=== PATIENT | female | born 1970 | race Caucasian/White ===

== ENCOUNTER 2024-02-08 10:22 | Inpatient (IN) | payer OTHER ==
[2024-02-08 10:55] VITALS: BMI 29.0
[2024-02-08] MEDS ORDERED: IBUPROFEN 400 MG TABLET (FP) PO PRN (11:19)
[2024-02-08] MEDS ORDERED: guaiFENesin 600 MG TABLET.ER (FP) PO PRN (11:19)
[2024-02-08] MEDS ORDERED: MAG HYDROX/AL HYDROX/SIMETH 30 ML UNIT-DOSE CUP PO PRN (11:19)
[2024-02-08] MEDS ORDERED: BENZONATATE 200 MG CAPSULE PO PRN (11:19)
[2024-02-08] MEDS ORDERED: MAGNESIUM HYDROX 2400MG/30ML ORAL SUSPENSION 30 ML CUP PO PRN (11:19)
[2024-02-08] MEDS ORDERED: P-EPHED 60MG/TRIPROLIDI 2.5MG TABLET PO PRN (11:19)
[2024-02-08] MEDS ORDERED: ONDANSETRON *ODT* 4 MG TABLET SL PRN (11:19)
[2024-02-08] MEDS ORDERED: NALOXONE (NARCAN) HCL 4 MG/0.1 ML SPRAY NS PRN (11:19)
[2024-02-08] MEDS ORDERED: DICYCLOMINE HCL 10 MG CAPSULE PO PRN (11:19)
[2024-02-08] MEDS ORDERED: BENZOCAINE/MENTHOL (CHLORASEPTIC ) LOZENGE MM PRN (11:19)
[2024-02-08] MEDS ORDERED: ACETAMINOPHEN 325 MG TABLET (FP) PO PRN (11:19)
[2024-02-08] MEDS ORDERED: NALOXONE (NYS OPIOID OVERDOSE PROGRAM) 4 MG/0.1 ML SPRAY NS PRN (11:19)
[2024-02-08] MEDS ORDERED: POLYETHYLENE GLYCOL (HEALTHYLAX) 3350 17 GM PACKET PO PRN (11:19)
[2024-02-08] MEDS ORDERED: chlordiazePOXIDE HCL 25 MG CAPSULE ONE (11:55)
[2024-02-08] MEDS: chlordiazePOXIDE HCL 25 MG CAPSULE PO SCH (11:57)
[2024-02-08] MEDS ORDERED: INSULIN (NOVOLOG) ASPART 100 UNITS/ML 10ML VIAL ONE ×2 (12:10→22:21)
[2024-02-08] MEDS: INSULIN ASPART SLIDING SCALE (NOVOLOG) 1 VIAL SQ SCH (12:12)
[2024-02-08] MEDS ORDERED: methaDONE HCL 40 MG DISPERSABLE TABLET PO SCH (13:45)
[2024-02-08] MEDS: IBUPROFEN 600 MG TABLET (FP) PO PRN (17:09)
[2024-02-08] MEDS ORDERED: MELATONIN 5 MG TABLETS PO SCH (22:00)
[2024-02-08] MEDS: SUVOREXANT 10 MG TABLET PO PRN (22:16)
[2024-02-08] MEDS: METHOCARBAMOL 500 MG TABLET PO PRN (22:16)
[2024-02-08] MEDS: THIAMINE 100 MG TABLET PO SCH (22:16)
[2024-02-08] MEDS: SILVER SULFADIAZINE 1% TOP CREAM 50 GM JAR TP SCH (22:17)
[2024-02-09] MEDS: PRENATAL VITAMINS W/ FOLIC ACID TABLET (FP) PO SCH (10:10)
[2024-02-09 13:26] LABS: HEMATOCRIT 35.8 % (32.4-45.2); MCH 31.1 pg (25.7-33.7); MCHC 33.5 g/dl (32.0-36.0); MEAN CELL VOLUME 92.9 fl (80-96); PLATELET COUNT 140 10^3/uL (134-434); RBC 3.85 M/mm3 (3.60-5.2); RDW 14.1 % (11.6-15.6); WHITE BLOOD COUNT 6.2 K/mm3 (4.0-10.0)
[2024-02-09 13:41] LABS: POTASSIUM 4.3 mmol/L (3.5-5.1)
[2024-02-09 13:51] LABS: ALBUMIN 3.1 g/dl (3.4-5.0); BLOOD UREA NITROGEN 14.7 mg/dL (7-18)
[2024-02-09 13:54] LABS: CREATININE 0.7 mg/dL (0.55-1.3)
[2024-02-09 13:55] LABS: CALCIUM 9.1 mg/dL (8.5-10.1)
[2024-02-09 13:56] LABS: BILIRUBIN,TOTAL 0.3 mg/dL (0.2-1); TOT PROT 5.8 g/dl (6.4-8.2)
[2024-02-09] MEDS ORDERED: INSULIN (NOVOLOG) ASPART 100 UNITS/ML 10ML VIAL ONE ×2 (17:08→22:53)
[2024-02-09] MEDS: chlordiazePOXIDE HCL 25 MG CAPSULE PO PRN (19:52)
[2024-02-09] MEDS: LOPERAMIDE HCL 2 MG CAPSULE PO PRN (19:52)
[2024-02-10] MEDS: chlordiazePOXIDE HCL 25 MG CAPSULE PO SCH (05:45)
[2024-02-10] MEDS ORDERED: INSULIN ASPART SLIDING SCALE (NOVOLOG) 1 VIAL SQ SCH (14:33)
[2024-02-10] MEDS ORDERED: INSULIN (NOVOLOG) ASPART 100 UNITS/ML 10ML VIAL ONE (16:58)
[2024-02-10] MEDS: INSULIN ASPART SLIDING SCALE (NOVOLOG) 1 VIAL SQ SCH (18:11)
[2024-02-10] MEDS: INSULIN (LEVEMIR) 100 UNITS/ML UNITS SQ SCH (22:19)
[2024-02-11] MEDS ORDERED: chlordiazePOXIDE HCL 10 MG CAPSULE PO PRN
[2024-02-11] MEDS: chlordiazePOXIDE HCL 10 MG CAPSULE PO SCH (05:45)
[2024-02-11] MEDS: EMPAGLIFLOZIN (JARDIANCE) 25 MG TABLET PO SCH (06:58)
[2024-02-11] MEDS: SULFAMETHOXAZOLE/TRIMETHOPRIM 800MG/160MG D.S. TABLET PO SCH (10:42)
[2024-02-11] MEDS: LIDOCAINE 4% PATCH TP SCH (15:10)
[2024-02-11] MEDS ORDERED: INSULIN (NOVOLOG) ASPART 100 UNITS/ML 10ML VIAL ONE ×3 (16:28→23:05)
[2024-02-11] MEDS: LIDOCAINE PATCH REMOVAL MC SCH (22:25)
[2024-02-11] MEDS: BISMUTH SUBSALICYLATE 262 MG/15 ML BTL PO PRN (22:27)
[2024-02-12] MEDS: chlordiazePOXIDE HCL 10 MG CAPSULE PO SCH (05:55)
[2024-02-12] MEDS ORDERED: INSULIN (NOVOLOG) ASPART 100 UNITS/ML 10ML VIAL ONE ×3 (10:51→22:16)
[2024-02-13] MEDS: chlordiazePOXIDE HCL 10 MG CAPSULE PO ONE (05:56)
[2024-02-13 06:32] VITALS: PULSE 90
[2024-02-13 09:20] VITALS: BP 139/81; RESP 18; TEMP 98
[2024-02-13] MEDS ORDERED: INSULIN (NOVOLOG) ASPART 100 UNITS/ML 10ML VIAL ONE (11:22)
== END 2024-02-13 13:20 | disposition other institution (70) | DRG 773 ==
LOC: YASAS 10:22 → Y6N 12:06
PROVIDERS: ADMIT Allergy & Immunology; ATTEND Surgery
PROC: HZ2ZZZZ Detoxification Services for Substance Abuse Treatment (ICD-10-PCS; principal; 2024-02-08)
DX: F10.230 Alcohol dependence with withdrawal, uncomplicated (principal); F11.20 Opioid dependence, uncomplicated; F14.20 Cocaine dependence, uncomplicated; F31.9 Bipolar disorder, unspecified; F25.9 Schizoaffective disorder, unspecified; F19.282 Other psychoactive substance dependence with psychoactive substance-induced sleep disorder; F19.280 Other psychoactive substance dependence with psychoactive substance-induced anxiety disorder; F43.10 Post-traumatic stress disorder, unspecified; I25.2 Old myocardial infarction; E11.9 Type 2 diabetes mellitus without complications; Z79.4 Long term (current) use of insulin; Z86.19 Personal history of other infectious and parasitic diseases; Z99.89 Dependence on other enabling machines and devices
CPT/HCPCS: 0241U-QW; 36415; 71045-TC-FY; 80053; 80305; 80307; 81025; 82962; 83036; 85027; 86593; 86780; 87811; 93005; 93010

== ENCOUNTER 2024-02-13 13:41 | Inpatient (IN) | payer OTHER ==
[~2024-02-13 13:41] MED LIST: BENZONATATE 200 MG CAPSULE PO PRN; IBUPROFEN 400 MG TABLET (FP) PO PRN; LOPERAMIDE HCL 2 MG CAPSULE PO PRN; MAG HYDROX/AL HYDROX/SIMETH 30 ML UNIT-DOSE CUP PO PRN; MAGNESIUM HYDROX 2400MG/30ML ORAL SUSPENSION 30 ML CUP PO PRN; NALOXONE (NARCAN) HCL 4 MG/0.1 ML SPRAY NS PRN; NICOTINE POLACRILEX 2 MG GUM BUC PRN; NICOTINE POLACRILEX 2 MG LOZENGE BC PRN; POLYETHYLENE GLYCOL (HEALTHYLAX) 3350 17 GM PACKET PO PRN; guaiFENesin 600 MG TABLET.ER (FP) PO PRN
[2024-02-13] MEDS ORDERED: INSULIN ASPART SLIDING SCALE (NOVOLOG) 1 VIAL SQ SCH (16:30)
[2024-02-13] MEDS: THIAMINE 100 MG TABLET PO SCH (21:47)
[2024-02-13] MEDS: INSULIN (LEVEMIR) 100 UNITS/ML UNITS SQ SCH (21:47)
[2024-02-13] MEDS: MELATONIN 5 MG TABLETS PO SCH (21:47)
[2024-02-13] MEDS: SULFAMETHOXAZOLE/TRIMETHOPRIM 800MG/160MG D.S. TABLET PO SCH (21:47)
[2024-02-13] MEDS: hydrOXYzine PAMOATE 25 MG CAPSULE (FP) PO PRN (21:49)
[2024-02-13] MEDS: SILVER SULFADIAZINE 1% TOP CREAM 50 GM JAR TP SCH (22:56)
[2024-02-14] MEDS ORDERED: INSULIN (NOVOLOG) ASPART 100 UNITS/ML 10ML VIAL ONE (06:13)
[2024-02-14] MEDS: methaDONE HCL 40 MG DISPERSABLE TABLET PO SCH (07:04)
[2024-02-14] MEDS: INSULIN ASPART SLIDING SCALE (NOVOLOG) 1 VIAL SQ SCH (07:36)
[2024-02-14] MEDS ORDERED: methaDONE HCL 10 MG TABLET PO ONE (10:00)
[2024-02-14] MEDS: PRENATAL VITAMINS W/ FOLIC ACID TABLET (FP) PO SCH (10:18)
[2024-02-15] MEDS ORDERED: INSULIN (NOVOLOG) ASPART 100 UNITS/ML 10ML VIAL ONE ×2 (11:55→16:53)
[2024-02-15] MEDS: GABAPENTIN 100 MG CAPSULE PO SCH (11:58)
[2024-02-15] MEDS: INSULIN ASPART SLIDING SCALE (NOVOLOG) 1 VIAL SQ SCH (12:00)
[2024-02-15] MEDS: hydrOXYzine PAMOATE 50 MG CAPSULE (FP) PO PRN (16:57)
[2024-02-15] MEDS: SUVOREXANT 15 MG TABLET PO PRN (21:13)
[2024-02-16] MEDS ORDERED: INSULIN (NOVOLOG) ASPART 100 UNITS/ML 10ML VIAL ONE ×3 (06:06→16:33)
[2024-02-16] MEDS ORDERED: DICYCLOMINE HCL 10 MG CAPSULE PO PRN (10:13)
[2024-02-16] MEDS ORDERED: guaiFENesin 600 MG TABLET.ER (FP) PO PRN (10:13)
[2024-02-16] MEDS ORDERED: ONDANSETRON *ODT* 4 MG TABLET SL PRN (10:13)
[2024-02-16] MEDS ORDERED: BISMUTH SUBSALICYLATE 524 MG/30 ML PO PRN (10:13)
[2024-02-16] MEDS ORDERED: BENZONATATE 200 MG CAPSULE PO PRN (10:13)
[2024-02-16] MEDS: MELATONIN 5 MG TABLETS PO SCH (21:27)
[2024-02-17] MEDS ORDERED: INSULIN (NOVOLOG) ASPART 100 UNITS/ML 10ML VIAL ONE ×3 (06:50→16:46)
[2024-02-17] MEDS: IBUPROFEN 600 MG TABLET (FP) PO PRN (17:36)
[2024-02-18] MEDS ORDERED: INSULIN (NOVOLOG) ASPART 100 UNITS/ML 10ML VIAL ONE ×3 (07:09→16:35)
[2024-02-18] MEDS: ACETAMINOPHEN 325 MG TABLET (FP) PO PRN (21:03)
[2024-02-19] MEDS ORDERED: INSULIN (NOVOLOG) ASPART 100 UNITS/ML 10ML VIAL ONE ×3 (07:22→16:29)
[2024-02-19] MEDS: ALBUTEROL SO4 0.083% IH SOL 2.5 MG/3 ML VIAL.NEB. NEB PRN (07:22)
[2024-02-19] MEDS: traZODone HCL 50 MG TABLET (FP) PO SCH (21:55)
[2024-02-19] MEDS: GABAPENTIN 100 MG CAPSULE PO SCH (21:56)
[2024-02-20] MEDS ORDERED: INSULIN (NOVOLOG) ASPART 100 UNITS/ML 10ML VIAL ONE ×2 (06:40→11:49)
[2024-02-20] MEDS: SUVOREXANT 15 MG TABLET PO PRN (21:20)
[2024-02-21] MEDS ORDERED: INSULIN (NOVOLOG) ASPART 100 UNITS/ML 10ML VIAL ONE ×3 (06:13→16:51)
[2024-02-22] MEDS ORDERED: INSULIN (NOVOLOG) ASPART 100 UNITS/ML 10ML VIAL ONE ×3 (07:22→16:17)
[2024-02-22] MEDS: METHYL SALICYLATE/MENTHOL 30 GM TUBE TP SCH (11:54)
[2024-02-22] MEDS: GABAPENTIN 400 MG CAPSULE PO SCH (13:18)
[2024-02-22] MEDS: BACLOFEN 10 MG TABLET (FP) PO SCH (13:18)
[2024-02-23] MEDS ORDERED: INSULIN (NOVOLOG) ASPART 100 UNITS/ML 10ML VIAL ONE ×3 (08:01→16:41)
[2024-02-23] MEDS: clonazePAM 0.5 MG ODT TABLETS SL SCH (14:03)
[2024-02-24] MEDS ORDERED: INSULIN (NOVOLOG) ASPART 100 UNITS/ML 10ML VIAL ONE ×3 (06:47→17:32)
[2024-02-24] MEDS: SUVOREXANT 20 MG TABLET PO PRN (21:31)
[2024-02-25] MEDS ORDERED: INSULIN (NOVOLOG) ASPART 100 UNITS/ML 10ML VIAL ONE ×3 (06:32→16:36)
[2024-02-26] MEDS ORDERED: INSULIN (NOVOLOG) ASPART 100 UNITS/ML 10ML VIAL ONE ×2 (07:44→13:31)
[2024-02-26] MEDS: clonazePAM 0.25 MG ODT TABLETS SL SCH (09:42)
[2024-02-27] MEDS ORDERED: INSULIN (NOVOLOG) ASPART 100 UNITS/ML 10ML VIAL ONE ×2 (12:11→16:44)
[2024-02-28] MEDS ORDERED: INSULIN (NOVOLOG) ASPART 100 UNITS/ML 10ML VIAL ONE (06:08)
[2024-02-28] MEDS: clonazePAM 0.25 MG ODT TABLETS SL SCH (09:02)
[2024-02-28] MEDS: GABAPENTIN 300 MG CAPSULE PO SCH (13:38)
[2024-02-29] MEDS ORDERED: INSULIN (NOVOLOG) ASPART 100 UNITS/ML 10ML VIAL ONE ×3 (06:21→17:01)
[2024-03-01] MEDS ORDERED: INSULIN (NOVOLOG) ASPART 100 UNITS/ML 10ML VIAL ONE ×2 (12:08→16:35)
[2024-03-02] MEDS ORDERED: INSULIN (NOVOLOG) ASPART 100 UNITS/ML 10ML VIAL ONE (12:19)
[2024-03-03] MEDS ORDERED: INSULIN (NOVOLOG) ASPART 100 UNITS/ML 10ML VIAL ONE ×2 (14:07→16:57)
[2024-03-04] MEDS: BENZOCAINE/MENTHOL (CHLORASEPTIC ) LOZENGE MM PRN (01:30)
[2024-03-04] MEDS ORDERED: INSULIN (NOVOLOG) ASPART 100 UNITS/ML 10ML VIAL ONE ×2 (12:01→16:36)
[2024-03-04] MEDS ORDERED: SUVOREXANT 10 MG TABLET PO PRN (22:00)
[2024-03-05 06:56] VITALS: RESP 18
[2024-03-05] MEDS ORDERED: INSULIN (NOVOLOG) ASPART 100 UNITS/ML 10ML VIAL ONE (16:35)
[2024-03-06] MEDS ORDERED: INSULIN (NOVOLOG) ASPART 100 UNITS/ML 10ML VIAL ONE (06:29)
[2024-03-06 06:59] VITALS: TEMP 97.3
[2024-03-06 09:16] VITALS: BP 120/73; PULSE 85
[2024-03-06] MEDS: NALOXONE (NYS OPIOID OVERDOSE PROGRAM) 4 MG/0.1 ML SPRAY NS PRN (09:48)
[2024-03-06] MEDS: NALOXONE (NYS OPIOID OVERDOSE PROGRAM) 4 MG/0.1 ML SPRAY NS SCH (09:50)
== END 2024-03-06 10:45 | disposition home or self-care (01) | DRG 772 ==
LOC: YASAS 13:41 → Y5N 13:43
PROVIDERS: ADMIT Surgery; ATTEND Psychiatry & Neurology Pain Medicine
PROC: HZ42ZZZ Group Counseling for Substance Abuse Treatment, Cognitive-Behavioral (ICD-10-PCS; principal; 2024-02-13)
DX: F10.20 Alcohol dependence, uncomplicated (principal); F13.20 Sedative, hypnotic or anxiolytic dependence, uncomplicated; F14.20 Cocaine dependence, uncomplicated; F11.20 Opioid dependence, uncomplicated; F17.210 Nicotine dependence, cigarettes, uncomplicated; F19.280 Other psychoactive substance dependence with psychoactive substance-induced anxiety disorder; F19.282 Other psychoactive substance dependence with psychoactive substance-induced sleep disorder; F41.9 Anxiety disorder, unspecified; F32.A Depression, unspecified; F43.10 Post-traumatic stress disorder, unspecified; E11.9 Type 2 diabetes mellitus without complications; Z79.4 Long term (current) use of insulin; H53.8 Other visual disturbances; J06.9 Acute upper respiratory infection, unspecified; M54.50 Low back pain, unspecified; G89.29 Other chronic pain; Z86.718 Personal history of other venous thrombosis and embolism; I25.2 Old myocardial infarction
CPT/HCPCS: 0241U-QW; 71046-TC-FY; 80305; 82962; 94640; J0475

== ENCOUNTER 2024-04-28 16:07 | Inpatient (IN) | payer OTHER ==
[2024-04-28 16:35] VITALS: BMI 29.2
[2024-04-28] MEDS ORDERED: MAGNESIUM HYDROX 2400MG/30ML ORAL SUSPENSION 30 ML CUP PO PRN (16:57)
[2024-04-28] MEDS ORDERED: IBUPROFEN 400 MG TABLET (FP) PO PRN (16:57)
[2024-04-28] MEDS ORDERED: DICYCLOMINE HCL 10 MG CAPSULE PO PRN (16:57)
[2024-04-28] MEDS ORDERED: POLYETHYLENE GLYCOL (HEALTHYLAX) 3350 17 GM PACKET PO PRN (16:57)
[2024-04-28] MEDS ORDERED: BISMUTH SUBSALICYLATE 524 MG/30 ML PO PRN (16:57)
[2024-04-28] MEDS ORDERED: LOPERAMIDE HCL 2 MG CAPSULE PO PRN (16:57)
[2024-04-28] MEDS ORDERED: BENZONATATE 200 MG CAPSULE PO PRN (16:57)
[2024-04-28] MEDS ORDERED: guaiFENesin 600 MG TABLET.ER (FP) PO PRN (16:57)
[2024-04-28] MEDS ORDERED: ACETAMINOPHEN 325 MG TABLET (FP) PO PRN (16:57)
[2024-04-28] MEDS ORDERED: BENZOCAINE/MENTHOL (CHLORASEPTIC ) LOZENGE MM PRN (16:57)
[2024-04-28] MEDS ORDERED: NALOXONE (NARCAN) HCL 4 MG/0.1 ML SPRAY NS PRN (16:57)
[2024-04-28] MEDS ORDERED: INSULIN (NOVOLOG) ASPART 100 UNITS/ML 10ML VIAL ONE ×2 (17:57→22:07)
[2024-04-28] MEDS: INSULIN ASPART SLIDING SCALE (NOVOLOG) 1 VIAL SQ SCH (18:01)
[2024-04-28] MEDS ORDERED: diazePAM 5 MG TABLET ONE (18:11)
[2024-04-28] MEDS: diazePAM 5 MG TABLET PO SCH (18:12)
[2024-04-28] MEDS: METHOCARBAMOL 500 MG TABLET PO PRN (20:53)
[2024-04-28] MEDS: IBUPROFEN 600 MG TABLET (FP) PO PRN (20:53)
[2024-04-28] MEDS: BACITRACIN 0.9 GM PACKET TP SCH (20:55)
[2024-04-28] MEDS: MELATONIN 5 MG TABLETS PO SCH (22:37)
[2024-04-28] MEDS: THIAMINE 100 MG TABLET PO SCH (22:37)
[2024-04-28] MEDS: SULFAMETHOXAZOLE/TRIMETHOPRIM 800MG/160MG D.S. TABLET PO SCH (22:37)
[2024-04-29] MEDS: LORazepam 1 MG TABLET PO ONE (05:04)
[2024-04-29] MEDS: MAG HYDROX/AL HYDROX/SIMETH 30 ML UNIT-DOSE CUP PO PRN (05:05)
[2024-04-29] MEDS: ONDANSETRON *ODT* 4 MG TABLET SL PRN (05:05)
[2024-04-29] MEDS: ASPIRIN 81 MG CHEWABLE TABLETS PO ONE (05:11)
[2024-04-29] MEDS ORDERED: ASPIRIN 325 MG TABLET PO ONE (06:00)
[2024-04-29] MEDS ORDERED: INSULIN (NOVOLOG) ASPART 100 UNITS/ML 10ML VIAL ONE ×3 (07:18→16:44)
[2024-04-29 09:31] LABS: CHLORIDE 103 mmol/L (98-107); POTASSIUM 3.9 mmol/L (3.5-5.1); SODIUM 139 mmol/L (136-145)
[2024-04-29 09:38] LABS: ALBUMIN 2.9 g/dl (3.4-5.0); ANION GAP 5 mmol/L (4-13); BLOOD UREA NITROGEN 9.7 mg/dL (7-18); CALCIUM 8.8 mg/dL (8.5-10.1); CO2 31 mmol/L (21-32); GLUCOSE,RANDOM 250 mg/dL (74-106)
[2024-04-29 09:41] LABS: BILIRUBIN,TOTAL 0.4 mg/dL (0.2-1); CREATININE 0.5 mg/dL (0.55-1.3); SGOT/AST 18 U/L (15-37); SGPT/ALT 16 U/L (13-61)
[2024-04-29 09:42] LABS: ALK PHOS 90 U/L (45-117); TOT PROT 5.8 g/dl (6.4-8.2)
[2024-04-29 09:51] LABS: HEMATOCRIT 38.7 % (32.4-45.2); HEMOGLOBIN 12.6 GM/dL (10.7-15.3); MCHC 32.6 g/dl (32.0-36.0); MEAN PLT VOLUME 8.4 fl (7.5-11.1); PLATELET COUNT 265 10^3/uL (134-434); RBC 4.21 M/mm3 (3.60-5.2); RDW 13.8 % (11.6-15.6); WHITE BLOOD COUNT 10.1 K/mm3 (4.0-10.0)
[2024-04-29] MEDS: PRENATAL VITAMINS W/ FOLIC ACID TABLET (FP) PO SCH (09:59)
[2024-04-29] MEDS: methaDONE HCL 10 MG TABLET PO ONE ×2 (11:43→15:14)
[2024-04-29] MEDS: DIVALPROEX SODIUM 500 MG TABLET E.C. PO SCH (13:15)
[2024-04-29] MEDS: diazePAM 5 MG TABLET PO PRN (18:46)
[2024-04-29] MEDS ORDERED: SUVOREXANT 10 MG TABLET PO PRN (22:00)
[2024-04-29] MEDS: traZODone HCL 50 MG TABLET (FP) PO SCH (22:27)
[2024-04-30] MEDS ORDERED: methaDONE HCL 40 MG DISPERSABLE TABLET PO SCH (06:00)
[2024-04-30] MEDS: diazePAM 5 MG TABLET PO SCH (06:13)
[2024-04-30] MEDS: GABAPENTIN 100 MG CAPSULE PO SCH (10:07)
[2024-04-30] MEDS: ASPIRIN 81 MG CHEWABLE TABLETS PO SCH (12:10)
[2024-04-30] MEDS ORDERED: INSULIN (NOVOLOG) ASPART 100 UNITS/ML 10ML VIAL ONE (16:50)
[2024-04-30] MEDS: CARVEDILOL 3.125 MG TABLET (FP) PO SCH (22:34)
[2024-04-30] MEDS: SACUBITRIL/VALSARTAN 24 MG-26 MG TABLET PO SCH (22:34)
[2024-04-30] MEDS: INSULIN (LEVEMIR) 100 UNITS/ML UNITS SQ SCH (22:35)
[2024-05-01] MEDS: diazePAM 5 MG TABLET PO SCH (06:00)
[2024-05-01] MEDS: EMPAGLIFLOZIN (JARDIANCE) 25 MG TABLET PO SCH (06:02)
[2024-05-01] MEDS: CLOPIDOGREL BISULFATE 75 MG TABLET (FP) PO SCH (09:46)
[2024-05-01] MEDS: NALOXONE (NYS OPIOID OVERDOSE PROGRAM) 4 MG/0.1 ML SPRAY NS SCH (11:47)
[2024-05-01] MEDS: CEPHALEXIN MONOHYDRATE 500 MG CAPSULE (UD) PO SCH (15:07)
[2024-05-01] MEDS ORDERED: INSULIN (NOVOLOG) ASPART 100 UNITS/ML 10ML VIAL ONE (17:09)
[2024-05-01] MEDS: MUPIROCIN CA 2% TOPICAL CREAM 15 GM TUBE TP SCH (21:48)
[2024-05-02] MEDS: diazePAM 5 MG TABLET PO ONE (06:12)
[2024-05-02 09:27] VITALS: BP 103/68; PULSE 77; RESP 18; TEMP 98.6
== END 2024-05-02 10:03 | disposition other institution (70) | DRG 773 ==
LOC: YASAS 16:07 → Y6N 17:22
PROVIDERS: ADMIT Allergy & Immunology; ATTEND Allergy & Immunology
PROC: HZ2ZZZZ Detoxification Services for Substance Abuse Treatment (ICD-10-PCS; principal; 2024-04-28)
DX: F10.230 Alcohol dependence with withdrawal, uncomplicated (principal); F11.20 Opioid dependence, uncomplicated; F13.20 Sedative, hypnotic or anxiolytic dependence, uncomplicated; F19.282 Other psychoactive substance dependence with psychoactive substance-induced sleep disorder; F19.280 Other psychoactive substance dependence with psychoactive substance-induced anxiety disorder; F31.9 Bipolar disorder, unspecified; I10 Essential (primary) hypertension; E11.9 Type 2 diabetes mellitus without complications; Z79.4 Long term (current) use of insulin; Z20.2 Contact with and (suspected) exposure to infections with a predominantly sexual mode of transmission; Z99.89 Dependence on other enabling machines and devices; Z86.718 Personal history of other venous thrombosis and embolism; Z79.02 Long term (current) use of antithrombotics/antiplatelets; Z62.810 Personal history of physical and sexual abuse in childhood; Z91.410 Personal history of adult physical and sexual abuse; Z63.8 Other specified problems related to primary support group; Z63.0 Problems in relationship with spouse or partner
CPT/HCPCS: 0241U-QW; 36415; 80053; 80305; 80307; 81025; 82962; 85027; 86593; 86780; 93005; 93010; Q0162

== ENCOUNTER 2024-06-14 12:12 | Inpatient (IN) | payer OTHER ==
[2024-06-14 13:03] VITALS: BMI 24.5
[2024-06-14] MEDS ORDERED: NICOTINE POLACRILEX 2 MG LOZENGE BC PRN (13:07)
[2024-06-14] MEDS ORDERED: MAG HYDROX/AL HYDROX/SIMETH 30 ML UNIT-DOSE CUP PO PRN (13:07)
[2024-06-14] MEDS ORDERED: ACETAMINOPHEN 325 MG TABLET (FP) PO PRN (13:07)
[2024-06-14] MEDS ORDERED: BENZOCAINE/MENTHOL (CHLORASEPTIC ) LOZENGE MM PRN (13:07)
[2024-06-14] MEDS ORDERED: MAGNESIUM HYDROX 2400MG/30ML ORAL SUSPENSION 30 ML CUP PO PRN (13:07)
[2024-06-14] MEDS ORDERED: guaiFENesin 600 MG TABLET.ER (FP) PO PRN (13:07)
[2024-06-14] MEDS ORDERED: LOPERAMIDE HCL 2 MG CAPSULE PO PRN (13:07)
[2024-06-14] MEDS ORDERED: POLYETHYLENE GLYCOL (HEALTHYLAX) 3350 17 GM PACKET PO PRN (13:07)
[2024-06-14] MEDS ORDERED: NICOTINE POLACRILEX 2 MG GUM BUC PRN (13:07)
[2024-06-14] MEDS ORDERED: NALOXONE (NARCAN) HCL 4 MG/0.1 ML SPRAY NS PRN (13:07)
[2024-06-14] MEDS ORDERED: DICYCLOMINE HCL 10 MG CAPSULE PO PRN (13:07)
[2024-06-14] MEDS ORDERED: ONDANSETRON *ODT* 4 MG TABLET SL PRN (13:07)
[2024-06-14] MEDS ORDERED: BENZONATATE 200 MG CAPSULE PO PRN (13:07)
[2024-06-14] MEDS ORDERED: INSULIN (NOVOLOG) ASPART 100 UNITS/ML 10ML VIAL ONE (13:31)
[2024-06-14] MEDS ORDERED: levETIRAcetam 500 MG TABLET (FP) PO ONE (13:31)
[2024-06-14] MEDS ORDERED: diazePAM 5 MG TABLET ONE (13:31)
[2024-06-14] MEDS: levETIRAcetam 500 MG TABLET (FP) PO SCH (13:34)
[2024-06-14] MEDS: diazePAM 5 MG TABLET PO ONE (13:34)
[2024-06-14] MEDS: INSULIN ASPART SLIDING SCALE (NOVOLOG) 1 VIAL SQ SCH (13:34)
[2024-06-14] MEDS ORDERED: SILVER SULFADIAZINE 1% TOP CREAM 400 GM JAR TP SCH (17:00)
[2024-06-14] MEDS: diazePAM 5 MG TABLET PO SCH (17:18)
[2024-06-14] MEDS: SILVER SULFADIAZINE 1% TOP CREAM 50 GM JAR TP SCH (17:18)
[2024-06-14] MEDS: THIAMINE 100 MG TABLET PO SCH (22:35)
[2024-06-14] MEDS: MELATONIN 5 MG TABLETS PO SCH (22:35)
[2024-06-15] MEDS: EMPAGLIFLOZIN (JARDIANCE) 25 MG TABLET PO SCH (09:53)
[2024-06-15] MEDS: GABAPENTIN 100 MG CAPSULE PO SCH (09:53)
[2024-06-15] MEDS: methaDONE HCL 40 MG DISPERSABLE TABLET PO ONE (09:53)
[2024-06-15] MEDS: PRENATAL VITAMINS W/ FOLIC ACID TABLET (FP) PO SCH (09:53)
[2024-06-15] MEDS: ASPIRIN 81 MG CHEWABLE TABLETS PO SCH (09:53)
[2024-06-15 10:18] LABS: ALBUMIN 3.3 g/dl (3.4-5.0); CALCIUM 9.3 mg/dL (8.5-10.1)
[2024-06-15 10:21] LABS: HEMATOCRIT 43.3 % (32.4-45.2); HEMOGLOBIN 14.1 GM/dL (10.7-15.3); MCHC 32.6 g/dl (32.0-36.0); MEAN CELL VOLUME 91.8 fl (80-96); MEAN PLT VOLUME 9.4 fl (7.5-11.1); PLATELET COUNT 313 10^3/uL (134-434); RBC 4.72 M/mm3 (3.60-5.2); RDW 13.5 % (11.6-15.6)
[2024-06-15 10:22] LABS: CREATININE 0.9 mg/dL (0.55-1.3)
[2024-06-15 10:23] LABS: BILIRUBIN,TOTAL 0.7 mg/dL (0.2-1); TOT PROT 6.3 g/dl (6.4-8.2)
[2024-06-15] MEDS: CLOPIDOGREL BISULFATE 75 MG TABLET (FP) PO SCH (11:00)
[2024-06-15] MEDS: METHOCARBAMOL 500 MG TABLET PO PRN (11:12)
[2024-06-15] MEDS: FLU VACCINE (FLULAVAL) PF 45 MCG/0.5 ML SYRINGE 2024-2025 IM ONE (11:14)
[2024-06-15] MEDS: PNEUMOC 20-VAL CONJ-DIP CRM/PF 0.5 ML SYRINGE IM ONE (11:14)
[2024-06-15] MEDS ORDERED: methaDONE HCL 10 MG TABLET PO ONE (11:46)
[2024-06-15] MEDS: INSULIN GLARGINE (LANTUS) 100 UNITS/ML UNITS SQ SCH (21:23)
[2024-06-15] MEDS: QUEtiapine FUMARATE 100 MG TABLET (FP) PO SCH (22:29)
[2024-06-16] MEDS ORDERED: methaDONE HCL 10 MG TABLET PO SCH (06:00)
[2024-06-16] MEDS: diazePAM 5 MG TABLET PO SCH (06:01)
[2024-06-16] MEDS ORDERED: INSULIN ASPART SLIDING SCALE (NOVOLOG) 1 VIAL SQ ONE ×2 (17:04→18:46)
[2024-06-17] MEDS: diazePAM 5 MG TABLET PO SCH (06:11)
[2024-06-17] MEDS ORDERED: INSULIN ASPART SLIDING SCALE (NOVOLOG) 1 VIAL SQ ONE (08:10)
[2024-06-17] MEDS: diazePAM 5 MG TABLET PO PRN (10:56)
[2024-06-18] MEDS: diazePAM 5 MG TABLET PO ONE (05:53)
[2024-06-18 06:32] VITALS: RESP 16
[2024-06-18 09:35] VITALS: BP 115/75; PULSE 78; TEMP 97.7
== END 2024-06-18 10:36 | disposition home or self-care (01) | DRG 773 ==
LOC: YASAS 12:12 → Y3N 14:14
PROVIDERS: ADMIT Allergy & Immunology; ATTEND Allergy & Immunology
PROC: HZ2ZZZZ Detoxification Services for Substance Abuse Treatment (ICD-10-PCS; principal; 2024-06-14)
DX: F10.230 Alcohol dependence with withdrawal, uncomplicated (principal); F11.20 Opioid dependence, uncomplicated; F13.280 Sedative, hypnotic or anxiolytic dependence with sedative, hypnotic or anxiolytic-induced anxiety disorder; F14.20 Cocaine dependence, uncomplicated; F19.24 Other psychoactive substance dependence with psychoactive substance-induced mood disorder; F31.9 Bipolar disorder, unspecified; I25.10 Atherosclerotic heart disease of native coronary artery without angina pectoris; I10 Essential (primary) hypertension; I25.2 Old myocardial infarction; E11.9 Type 2 diabetes mellitus without complications; Z79.4 Long term (current) use of insulin; Z79.84 Long term (current) use of oral hypoglycemic drugs; M54.50 Low back pain, unspecified; G89.29 Other chronic pain; R76.8 Other specified abnormal immunological findings in serum; Z62.810 Personal history of physical and sexual abuse in childhood; Z63.8 Other specified problems related to primary support group; Z86.718 Personal history of other venous thrombosis and embolism; Z86.69 Personal history of other diseases of the nervous system and sense organs
CPT/HCPCS: 36415; 80053; 80305; 80307; 81025; 82962; 85027; 86593; 86780; 90656; 90677; 93005; 93010; G0008; G0009

== ENCOUNTER 2024-06-20 12:29 | Inpatient (IN) | payer OTHER ==
[2024-06-20 13:16] VITALS: BMI 29.6
[2024-06-20] MEDS ORDERED: NALOXONE HCL 0.4 MG/ML VIAL IVPUSH PRN (14:06)
[2024-06-20] MEDS ORDERED: MAG HYDROX/AL HYDROX/SIMETH 30 ML UNIT-DOSE CUP PO PRN (14:06)
[2024-06-20] MEDS ORDERED: NALOXONE (NARCAN) HCL 4 MG/0.1 ML SPRAY NS PRN (14:06)
[2024-06-20] MEDS ORDERED: guaiFENesin 600 MG TABLET.ER (FP) PO PRN (14:06)
[2024-06-20] MEDS ORDERED: NICOTINE POLACRILEX 2 MG GUM BUC PRN (14:06)
[2024-06-20] MEDS ORDERED: P-EPHED 60MG/TRIPROLIDI 2.5MG TABLET PO PRN (14:06)
[2024-06-20] MEDS ORDERED: BENZOCAINE/MENTHOL (CHLORASEPTIC ) LOZENGE MM PRN (14:06)
[2024-06-20] MEDS ORDERED: LOPERAMIDE HCL 2 MG CAPSULE PO PRN (14:06)
[2024-06-20] MEDS ORDERED: MAGNESIUM HYDROX 2400MG/30ML ORAL SUSPENSION 30 ML CUP PO PRN (14:06)
[2024-06-20] MEDS ORDERED: BENZONATATE 200 MG CAPSULE PO PRN (14:06)
[2024-06-20] MEDS ORDERED: POLYETHYLENE GLYCOL (HEALTHYLAX) 3350 17 GM PACKET PO PRN (14:06)
[2024-06-20] MEDS ORDERED: NICOTINE POLACRILEX 2 MG LOZENGE BC PRN (14:06)
[2024-06-20] MEDS: INSULIN ASPART SLIDING SCALE (NOVOLOG) 1 VIAL SQ SCH (16:25)
[2024-06-20] MEDS ORDERED: INSULIN (NOVOLOG) ASPART 100 UNITS/ML 10ML VIAL ONE (16:29)
[2024-06-20] MEDS: THIAMINE 100 MG TABLET PO SCH (22:18)
[2024-06-20] MEDS: MELATONIN 5 MG TABLETS PO SCH (22:18)
[2024-06-20] MEDS: GABAPENTIN 100 MG CAPSULE PO SCH (22:19)
[2024-06-20] MEDS: SACUBITRIL/VALSARTAN 24 MG-26 MG TABLET PO SCH (22:20)
[2024-06-20] MEDS: CARVEDILOL 3.125 MG TABLET (FP) PO SCH (22:21)
[2024-06-21] MEDS: EMPAGLIFLOZIN (JARDIANCE) 25 MG TABLET PO SCH (07:29)
[2024-06-21] MEDS ORDERED: INSULIN ASPART SLIDING SCALE (NOVOLOG) 1 VIAL SQ ONE (07:36)
[2024-06-21] MEDS ORDERED: methaDONE HCL 40 MG DISPERSABLE TABLET PO SCH (09:15)
[2024-06-21] MEDS: PRENATAL VITAMINS W/ FOLIC ACID TABLET (FP) PO SCH (09:26)
[2024-06-21] MEDS: ASPIRIN 81 MG CHEWABLE TABLETS PO SCH (09:27)
[2024-06-21] MEDS ORDERED: CLOPIDOGREL BISULFATE 75 MG TABLET (FP) PO SCH (10:00)
[2024-06-21] MEDS: METHOCARBAMOL 500 MG TABLET PO PRN (17:13)
[2024-06-22] MEDS ORDERED: INSULIN (NOVOLOG) ASPART 100 UNITS/ML 10ML VIAL ONE (11:10)
[2024-06-22] MEDS ORDERED: methaDONE HCL 10 MG TABLET PO ONE (11:17)
[2024-06-23] MEDS ORDERED: INSULIN (NOVOLOG) ASPART 100 UNITS/ML 10ML VIAL ONE ×2 (07:29→12:17)
[2024-06-24] MEDS ORDERED: INSULIN (NOVOLOG) ASPART 100 UNITS/ML 10ML VIAL ONE ×3 (06:15→21:48)
[2024-06-25] MEDS ORDERED: INSULIN (NOVOLOG) ASPART 100 UNITS/ML 10ML VIAL ONE ×2 (05:55→12:13)
[2024-06-25] MEDS: CEPHALEXIN MONOHYDRATE 500 MG CAPSULE (UD) PO SCH ×2 (23:35→23:40)
[2024-06-26] MEDS ORDERED: INSULIN (NOVOLOG) ASPART 100 UNITS/ML 10ML VIAL ONE ×2 (06:16→12:18)
[2024-06-26] MEDS: INSULIN GLARGINE (LANTUS) 100 UNITS/ML UNITS SQ SCH (21:21)
[2024-06-26] MEDS: SILVER SULFADIAZINE 1% TOP CREAM 50 GM JAR TP PRN (21:24)
[2024-06-27] MEDS ORDERED: INSULIN (NOVOLOG) ASPART 100 UNITS/ML 10ML VIAL ONE (06:03)
[2024-06-28] MEDS ORDERED: INSULIN (NOVOLOG) ASPART 100 UNITS/ML 10ML VIAL ONE (21:37)
[2024-06-28] MEDS: BACITRACIN 0.9 GM PACKET TP SCH (21:54)
[2024-06-29] MEDS ORDERED: methaDONE HCL 10 MG TABLET PO SCH ×2 (10:45)
[2024-06-29] MEDS ORDERED: INSULIN (NOVOLOG) ASPART 100 UNITS/ML 10ML VIAL ONE ×2 (11:22→21:31)
[2024-06-30] MEDS ORDERED: INSULIN (NOVOLOG) ASPART 100 UNITS/ML 10ML VIAL ONE ×5 (05:44→21:53)
[2024-07-01] MEDS ORDERED: INSULIN (NOVOLOG) ASPART 100 UNITS/ML 10ML VIAL ONE (06:36)
[2024-07-03] MEDS ORDERED: INSULIN (NOVOLOG) ASPART 100 UNITS/ML 10ML VIAL ONE (15:17)
[2024-07-03] MEDS: ACETAMINOPHEN 325 MG TABLET (FP) PO PRN (21:59)
[2024-07-04] MEDS ORDERED: INSULIN (NOVOLOG) ASPART 100 UNITS/ML 10ML VIAL ONE ×3 (06:17→16:51)
[2024-07-04] MEDS ORDERED: OFLOXACIN 0.3% OTIC SOLUTION 5 ML BOTTLE AS SCH (10:00)
[2024-07-04] MEDS: NEOMYCIN/POLYMYXN/HC OTIC SUSPENSION 10 ML BOTTLE AS SCH (10:01)
[2024-07-04] MEDS: NEOMYCIN/POLYMYXN/HC OTIC SUSPENSION 10 ML BOTTLE AS ONE (10:37)
[2024-07-05] MEDS ORDERED: INSULIN (NOVOLOG) ASPART 100 UNITS/ML 10ML VIAL ONE ×6 (07:35→21:58)
[2024-07-06] MEDS ORDERED: INSULIN (NOVOLOG) ASPART 100 UNITS/ML 10ML VIAL ONE (07:06)
[2024-07-07 07:19] VITALS: RESP 16; TEMP 97.5
[2024-07-07 09:31] VITALS: BP 126/69; PULSE 69
== END 2024-07-07 11:00 | disposition home or self-care (01) | DRG 772 ==
LOC: YASAS 12:29 → Y3NR 15:53 → Y5N 06-22 11:44
PROVIDERS: ADMIT Psychiatry & Neurology Pain Medicine; ATTEND Psychiatry & Neurology Pain Medicine
PROC: HZ42ZZZ Group Counseling for Substance Abuse Treatment, Cognitive-Behavioral (ICD-10-PCS; principal; 2024-06-20)
DX: F11.20 Opioid dependence, uncomplicated (principal); F14.20 Cocaine dependence, uncomplicated; F10.20 Alcohol dependence, uncomplicated; F13.20 Sedative, hypnotic or anxiolytic dependence, uncomplicated; F17.210 Nicotine dependence, cigarettes, uncomplicated; F19.282 Other psychoactive substance dependence with psychoactive substance-induced sleep disorder; F19.24 Other psychoactive substance dependence with psychoactive substance-induced mood disorder; F32.A Depression, unspecified; F43.10 Post-traumatic stress disorder, unspecified; I10 Essential (primary) hypertension; H60.92 Unspecified otitis externa, left ear; E11.9 Type 2 diabetes mellitus without complications; Z79.4 Long term (current) use of insulin; L02.31 Cutaneous abscess of buttock; M54.50 Low back pain, unspecified; G89.29 Other chronic pain; Z86.718 Personal history of other venous thrombosis and embolism
CPT/HCPCS: 80305; 80307; 81025; 82962; 87811; 93005; 93010

== ENCOUNTER 2024-08-24 11:42 | Inpatient (IN) | payer OTHER ==
[2024-08-24 12:17] VITALS: BMI 29.6
[2024-08-24] MEDS ORDERED: NALOXONE (NARCAN) HCL 4 MG/0.1 ML SPRAY NS PRN (13:01)
[2024-08-24] MEDS ORDERED: DICYCLOMINE HCL 10 MG CAPSULE PO PRN (13:01)
[2024-08-24] MEDS ORDERED: POLYETHYLENE GLYCOL (HEALTHYLAX) 3350 17 GM PACKET PO PRN (13:01)
[2024-08-24] MEDS ORDERED: BENZOCAINE/MENTHOL (CHLORASEPTIC ) LOZENGE MM PRN (13:01)
[2024-08-24] MEDS ORDERED: BISMUTH SUBSALICYLATE 524 MG/30 ML PO PRN (13:01)
[2024-08-24] MEDS ORDERED: LORazepam 1 MG TABLET PO PRN (13:01)
[2024-08-24] MEDS ORDERED: IBUPROFEN 400 MG TABLET (FP) PO PRN (13:01)
[2024-08-24] MEDS ORDERED: MAG HYDROX/AL HYDROX/SIMETH 30 ML UNIT-DOSE CUP PO PRN (13:01)
[2024-08-24] MEDS ORDERED: MAGNESIUM HYDROX 2400MG/30ML ORAL SUSPENSION 30 ML CUP PO PRN (13:01)
[2024-08-24] MEDS ORDERED: ONDANSETRON *ODT* 4 MG TABLET SL PRN (13:01)
[2024-08-24] MEDS ORDERED: LOPERAMIDE HCL 2 MG CAPSULE PO PRN (13:01)
[2024-08-24] MEDS ORDERED: guaiFENesin 600 MG TABLET.ER (FP) PO PRN (13:01)
[2024-08-24] MEDS ORDERED: BENZONATATE 200 MG CAPSULE PO PRN (13:01)
[2024-08-24] MEDS ORDERED: cloNIDine HCL 0.1 MG TABLET ONE (14:52)
[2024-08-24] MEDS: cloNIDine HCL 0.1 MG TABLET PO SCH (15:02)
[2024-08-24] MEDS ORDERED: ACETAMINOPHEN 325 MG TABLET (FP) ONE (15:12)
[2024-08-24] MEDS: ACETAMINOPHEN 325 MG TABLET (FP) PO PRN (15:13)
[2024-08-24] MEDS ORDERED: INSULIN (NOVOLOG) ASPART 100 UNITS/ML 10ML VIAL ONE (15:32)
[2024-08-24] MEDS: INSULIN (NOVOLOG) ASPART 100 UNITS/ML 10ML VIAL SQ ONE (15:34)
[2024-08-24] MEDS: methaDONE HCL 10 MG TABLET PO ONE (15:36)
[2024-08-24] MEDS: PRENATAL VITAMINS W/ FOLIC ACID TABLET (FP) PO SCH (15:50)
[2024-08-24] MEDS: INSULIN ASPART SLIDING SCALE (NOVOLOG) 1 VIAL SQ SCH (17:26)
[2024-08-24] MEDS: LORazepam 2 MG TABLET PO SCH (17:29)
[2024-08-24] MEDS: MELATONIN 5 MG TABLETS PO SCH (22:27)
[2024-08-24] MEDS: GABAPENTIN 100 MG CAPSULE PO SCH (22:28)
[2024-08-24] MEDS: THIAMINE 100 MG TABLET PO SCH (22:28)
[2024-08-24] MEDS: INSULIN GLARGINE (LANTUS) 100 UNITS/ML UNITS SQ SCH (22:31)
[2024-08-24] MEDS: SACUBITRIL/VALSARTAN 24 MG-26 MG TABLET PO SCH (22:34)
[2024-08-24] MEDS: CARVEDILOL 3.125 MG TABLET (FP) PO SCH (22:34)
[2024-08-25] MEDS ORDERED: methaDONE HCL 10 MG TABLET PO ONE (10:00)
[2024-08-25] MEDS ORDERED: methaDONE HCL 40 MG DISPERSABLE TABLET PO SCH (10:00)
[2024-08-25] MEDS: ASPIRIN 81 MG CHEWABLE TABLETS PO SCH (10:56)
[2024-08-25] MEDS: methaDONE HCL 10 MG TABLET PO ONE (10:57)
[2024-08-25] MEDS: EMPAGLIFLOZIN (JARDIANCE) 25 MG TABLET PO SCH (11:00)
[2024-08-25 11:49] LABS: POTASSIUM 4.9 mmol/L (3.5-5.1)
[2024-08-25 11:57] LABS: CREATININE 0.7 mg/dL (0.55-1.3)
[2024-08-25 12:02] LABS: BLOOD UREA NITROGEN 12.6 mg/dL (7-18); CALCIUM 9.8 mg/dL (8.5-10.1)
[2024-08-25 12:04] LABS: ALBUMIN 3.6 g/dl (3.4-5.0); HEMATOCRIT 42.8 % (34.1-44.9); HEMOGLOBIN 14.2 g/dL (11.2-15.7); MCHC 33.2 g/dl (32.2-35.5); MEAN CELL VOLUME 90.7 fl (79.4-94.8); MEAN PLT VOLUME 11.5 fl (9.4-12.3); PLATELET COUNT 326 x10^3/uL (182-369); RDW 11.5 % (12.3-16.6)
[2024-08-25 12:05] LABS: TOT PROT 6.8 g/dl (6.4-8.2)
[2024-08-25 12:08] LABS: BILIRUBIN,TOTAL 0.4 mg/dL (0.2-1)
[2024-08-26] MEDS ORDERED: cloNIDine HCL 0.1 MG TABLET PO PRN
[2024-08-26] MEDS: LORazepam 1 MG TABLET PO SCH (06:00)
[2024-08-26] MEDS ORDERED: methaDONE HCL 10 MG TABLET PO ONE (10:00)
[2024-08-27] MEDS ORDERED: LORazepam 0.5 MG TABLET PO PRN
[2024-08-27] MEDS: LORazepam 0.5 MG TABLET PO SCH (05:22)
[2024-08-27] MEDS ORDERED: methaDONE HCL 40 MG DISPERSABLE TABLET PO ONE ×2 (10:00)
[2024-08-27] MEDS: methaDONE HCL 10 MG TABLET PO ONE (10:16)
[2024-08-28] MEDS: LORazepam 0.5 MG TABLET PO ONE (05:53)
[2024-08-28] MEDS ORDERED: methaDONE 40 MG, methaDONE 10 MG PO ONE (10:00)
[2024-08-28] MEDS: METHOCARBAMOL 500 MG TABLET PO PRN (22:26)
[2024-08-28] MEDS: IBUPROFEN 600 MG TABLET (FP) PO PRN (22:28)
[2024-08-29] MEDS: CEPHALEXIN MONOHYDRATE 250 MG CAPSULE (FP) PO SCH (00:55)
[2024-08-29] MEDS ORDERED: methaDONE 40 MG, methaDONE 20 MG PO ONE (10:00)
[2024-08-29] MEDS ORDERED: methaDONE HCL 40 MG DISPERSABLE TABLET PO ONE (10:00)
[2024-08-29] MEDS: methaDONE HCL 10 MG TABLET PO ONE (10:37)
[2024-08-29] MEDS: hydrOXYzine PAMOATE 25 MG CAPSULE (FP) PO PRN (11:28)
[2024-08-29] MEDS ORDERED: INSULIN ASPART SLIDING SCALE (NOVOLOG) 1 VIAL SQ ONE (11:32)
[2024-08-30] MEDS ORDERED: INSULIN ASPART SLIDING SCALE (NOVOLOG) 1 VIAL SQ ONE (06:06)
[2024-08-30 09:04] VITALS: BP 160/70; PULSE 52; RESP 16; TEMP 97.6
== END 2024-08-30 14:12 | disposition other institution (70) | DRG 773 ==
LOC: YASAS 11:42 → Y3N 14:33
PROVIDERS: ADMIT Allergy & Immunology; ATTEND Allergy & Immunology
PROC: HZ2ZZZZ Detoxification Services for Substance Abuse Treatment (ICD-10-PCS; principal; 2024-08-24)
DX: F11.23 Opioid dependence with withdrawal (principal); F10.230 Alcohol dependence with withdrawal, uncomplicated; F14.20 Cocaine dependence, uncomplicated; F13.20 Sedative, hypnotic or anxiolytic dependence, uncomplicated; F31.9 Bipolar disorder, unspecified; F19.280 Other psychoactive substance dependence with psychoactive substance-induced anxiety disorder; F19.24 Other psychoactive substance dependence with psychoactive substance-induced mood disorder; F43.10 Post-traumatic stress disorder, unspecified; I25.10 Atherosclerotic heart disease of native coronary artery without angina pectoris; I11.0 Hypertensive heart disease with heart failure; I50.9 Heart failure, unspecified; I25.2 Old myocardial infarction; E10.9 Type 1 diabetes mellitus without complications; Z79.4 Long term (current) use of insulin; L02.412 Cutaneous abscess of left axilla
CPT/HCPCS: 36415; 80053; 80305; 80307; 81025; 82962; 85027; 86593; 86780; 87811; 93005; 93010

== ENCOUNTER 2024-08-30 14:25 | Inpatient (IN) | payer OTHER ==
[2024-08-30] MEDS ORDERED: LOPERAMIDE HCL 2 MG CAPSULE PO PRN (16:20)
[2024-08-30] MEDS ORDERED: MAGNESIUM HYDROX 2400MG/30ML ORAL SUSPENSION 30 ML CUP PO PRN (16:20)
[2024-08-30] MEDS ORDERED: IBUPROFEN 400 MG TABLET (FP) PO PRN (16:20)
[2024-08-30] MEDS ORDERED: NALOXONE HCL 0.4 MG/ML VIAL IVPUSH PRN (16:20)
[2024-08-30] MEDS ORDERED: NICOTINE POLACRILEX 4 MG GUM BUC PRN (16:20)
[2024-08-30] MEDS ORDERED: BENZOCAINE/MENTHOL (CHLORASEPTIC ) LOZENGE MM PRN (16:20)
[2024-08-30] MEDS ORDERED: guaiFENesin 600 MG TABLET.ER (FP) PO PRN (16:20)
[2024-08-30] MEDS ORDERED: ACETAMINOPHEN 325 MG TABLET (FP) PO PRN (16:20)
[2024-08-30] MEDS ORDERED: POLYETHYLENE GLYCOL (HEALTHYLAX) 3350 17 GM PACKET PO PRN (16:20)
[2024-08-30] MEDS ORDERED: MAG HYDROX/AL HYDROX/SIMETH 30 ML UNIT-DOSE CUP PO PRN (16:20)
[2024-08-30] MEDS ORDERED: NICOTINE 7 MG/24 HOURS TOPICAL PATCH TD PRN (16:20)
[2024-08-30] MEDS ORDERED: NALOXONE (NARCAN) HCL 4 MG/0.1 ML SPRAY NS PRN (16:20)
[2024-08-30] MEDS ORDERED: BENZONATATE 200 MG CAPSULE PO PRN (16:20)
[2024-08-30] MEDS ORDERED: IBUPROFEN 600 MG TABLET (FP) PO PRN (16:20)
[2024-08-30] MEDS ORDERED: NICOTINE POLACRILEX 4 MG LOZENGE BC PRN (16:22)
[2024-08-30] MEDS: METHOCARBAMOL 500 MG TABLET PO PRN (17:06)
[2024-08-30] MEDS: INSULIN ASPART SLIDING SCALE (NOVOLOG) 1 VIAL SQ SCH (17:06)
[2024-08-30] MEDS: GABAPENTIN 100 MG CAPSULE PO SCH (21:39)
[2024-08-30] MEDS: THIAMINE 100 MG TABLET PO SCH (21:39)
[2024-08-30] MEDS: CARVEDILOL 3.125 MG TABLET (FP) PO SCH (21:39)
[2024-08-30] MEDS: SACUBITRIL/VALSARTAN 24 MG-26 MG TABLET PO SCH (21:40)
[2024-08-30] MEDS: MELATONIN 5 MG TABLETS PO SCH (21:40)
[2024-08-30] MEDS: INSULIN GLARGINE (LANTUS) 100 UNITS/ML UNITS SQ SCH (21:41)
[2024-08-31] MEDS: CEPHALEXIN MONOHYDRATE 250 MG CAPSULE (FP) PO SCH ×2 (00:15→13:41)
[2024-08-31] MEDS ORDERED: CEPHALEXIN MONOHYDRATE 250 MG CAPSULE (FP) PO SCH (02:30)
[2024-08-31] MEDS ORDERED: methaDONE HCL 10 MG TABLET PO SCH (06:00)
[2024-08-31] MEDS ORDERED: INSULIN (NOVOLOG) ASPART 100 UNITS/ML 10ML VIAL ONE ×4 (07:27→16:26)
[2024-08-31] MEDS ORDERED: methaDONE HCL 40 MG DISPERSABLE TABLET PO SCH (10:00)
[2024-08-31] MEDS: ASPIRIN 81 MG CHEWABLE TABLETS PO SCH (10:08)
[2024-08-31] MEDS: EMPAGLIFLOZIN (JARDIANCE) 25 MG TABLET PO SCH (10:09)
[2024-08-31] MEDS: PRENATAL VITAMINS W/ FOLIC ACID TABLET (FP) PO SCH (10:11)
[2024-09-01] MEDS: QUEtiapine FUMARATE 100 MG TABLET (FP) PO SCH (21:35)
[2024-09-02] MEDS ORDERED: INSULIN (NOVOLOG) ASPART 100 UNITS/ML 10ML VIAL ONE ×3 (05:58→16:50)
[2024-09-02] MEDS: hydrOXYzine PAMOATE 25 MG CAPSULE (FP) PO PRN (09:52)
[2024-09-03] MEDS ORDERED: INSULIN (NOVOLOG) ASPART 100 UNITS/ML 10ML VIAL ONE ×3 (11:45→21:50)
[2024-09-04] MEDS ORDERED: INSULIN (NOVOLOG) ASPART 100 UNITS/ML 10ML VIAL ONE ×2 (06:46→10:46)
[2024-09-04] MEDS: TRIMETHOBENZAMIDE HCL 200MG/2ML INJ IM ONE (06:56)
[2024-09-05] MEDS ORDERED: guaiFENesin 600 MG TABLET.ER (FP) PO PRN (09:23)
[2024-09-05] MEDS ORDERED: BISMUTH SUBSALICYLATE 262 MG/15 ML BTL PO PRN (09:23)
[2024-09-05] MEDS ORDERED: DICYCLOMINE HCL 10 MG CAPSULE PO PRN (09:23)
[2024-09-05] MEDS ORDERED: ACETAMINOPHEN 325 MG TABLET (FP) PO PRN (09:23)
[2024-09-05] MEDS ORDERED: ONDANSETRON *ODT* 4 MG TABLET SL PRN (09:23)
[2024-09-05] MEDS ORDERED: BENZONATATE 200 MG CAPSULE PO PRN (09:23)
[2024-09-05] MEDS ORDERED: methaDONE HCL 10 MG TABLET PO ONE (10:00)
[2024-09-05] MEDS ORDERED: INSULIN (NOVOLOG) ASPART 100 UNITS/ML 10ML VIAL ONE ×2 (12:15→16:54)
[2024-09-05] MEDS: BENZOCAINE 20 % GEL TUBE MM PRN (21:26)
[2024-09-06] MEDS ORDERED: INSULIN (NOVOLOG) ASPART 100 UNITS/ML 10ML VIAL ONE ×3 (07:09→16:22)
[2024-09-07] MEDS ORDERED: INSULIN (NOVOLOG) ASPART 100 UNITS/ML 10ML VIAL ONE ×3 (06:19→16:47)
[2024-09-08] MEDS ORDERED: QUEtiapine FUMARATE 100 MG TABLET (FP) PO SCH (22:00)
[2024-09-08] MEDS: QUETIAPINE FUMARATE 100 MG, QUETIAPINE FUMARATE 50 MG PO SCH (22:16)
[2024-09-09] MEDS ORDERED: INSULIN (NOVOLOG) ASPART 100 UNITS/ML 10ML VIAL ONE ×2 (11:58→16:18)
[2024-09-09] MEDS: hydrOXYzine PAMOATE 25 MG CAPSULE (FP) PO PRN (16:31)
[2024-09-10] MEDS ORDERED: INSULIN (NOVOLOG) ASPART 100 UNITS/ML 10ML VIAL ONE (11:35)
[2024-09-11] MEDS ORDERED: INSULIN (NOVOLOG) ASPART 100 UNITS/ML 10ML VIAL ONE ×2 (12:00→16:50)
[2024-09-11] MEDS: CEPHALEXIN MONOHYDRATE 500 MG CAPSULE (UD) PO SCH (17:07)
[2024-09-12] MEDS ORDERED: INSULIN (NOVOLOG) ASPART 100 UNITS/ML 10ML VIAL ONE ×2 (11:54→16:45)
[2024-09-13] MEDS ORDERED: INSULIN (NOVOLOG) ASPART 100 UNITS/ML 10ML VIAL ONE ×3 (06:41→16:48)
[2024-09-14] MEDS ORDERED: INSULIN (NOVOLOG) ASPART 100 UNITS/ML 10ML VIAL ONE (16:37)
[2024-09-15] MEDS ORDERED: INSULIN (NOVOLOG) ASPART 100 UNITS/ML 10ML VIAL ONE (06:45)
[2024-09-16] MEDS ORDERED: INSULIN (NOVOLOG) ASPART 100 UNITS/ML 10ML VIAL ONE ×3 (11:57→23:42)
[2024-09-17] MEDS ORDERED: INSULIN (NOVOLOG) ASPART 100 UNITS/ML 10ML VIAL ONE (16:42)
[2024-09-18] MEDS ORDERED: INSULIN (NOVOLOG) ASPART 100 UNITS/ML 10ML VIAL ONE (06:46)
[2024-09-18] MEDS ORDERED: methaDONE HCL 40 MG DISPERSABLE TABLET PO SCH (10:31)
[2024-09-19] MEDS ORDERED: INSULIN (NOVOLOG) ASPART 100 UNITS/ML 10ML VIAL ONE ×2 (11:57→12:18)
[2024-09-20 07:06] VITALS: RESP 16; TEMP 97.1
[2024-09-20 07:07] VITALS: BP 117/60; PULSE 62
== END 2024-09-20 10:20 | disposition home or self-care (01) | DRG 772 ==
LOC: YASAS 14:25 → Y5N 14:27
PROVIDERS: ADMIT Psychiatry & Neurology Pain Medicine; ATTEND Psychiatry & Neurology Pain Medicine
PROC: HZ42ZZZ Group Counseling for Substance Abuse Treatment, Cognitive-Behavioral (ICD-10-PCS; principal; 2024-08-30)
DX: F10.20 Alcohol dependence, uncomplicated (principal); F11.20 Opioid dependence, uncomplicated; F14.20 Cocaine dependence, uncomplicated; F13.20 Sedative, hypnotic or anxiolytic dependence, uncomplicated; F12.20 Cannabis dependence, uncomplicated; F17.210 Nicotine dependence, cigarettes, uncomplicated; F19.282 Other psychoactive substance dependence with psychoactive substance-induced sleep disorder; F19.280 Other psychoactive substance dependence with psychoactive substance-induced anxiety disorder; F19.24 Other psychoactive substance dependence with psychoactive substance-induced mood disorder; F32.A Depression, unspecified; F43.10 Post-traumatic stress disorder, unspecified; G47.00 Insomnia, unspecified; I25.10 Atherosclerotic heart disease of native coronary artery without angina pectoris; I11.0 Hypertensive heart disease with heart failure; I50.9 Heart failure, unspecified; L02.11 Cutaneous abscess of neck; E11.9 Type 2 diabetes mellitus without complications; Z79.4 Long term (current) use of insulin; Z86.718 Personal history of other venous thrombosis and embolism; Z86.19 Personal history of other infectious and parasitic diseases; Z99.89 Dependence on other enabling machines and devices
CPT/HCPCS: 82962